=== PATIENT | male | born 1965 | race Caucasian/White ===

== ENCOUNTER 2021-01-24 08:58 | Emergency (ER) | payer BC ==
[2021-01-24] MEDS ORDERED: Sodium Chloride 0.9% 10 ML Syringe FLUSH PRN ×2 (09:07→09:14)
[2021-01-24] MEDS: Nitroglycerin 0.4 MG Tab.SL SL STA (09:09)
[2021-01-24] MEDS: Famotidine 20 MG/2 ML SDV IVPUSH ONE (09:12)
[2021-01-24] MEDS: Ticagrelor 90 MG Tab PO ONE (09:12)
[2021-01-24] MEDS: Ondansetron 4 MG/2 ML SDV IVPUSH ONE (09:12)
[2021-01-24] MEDS: Sodium Chloride 0.9% 10 ML Syringe FLUSH PRN (09:13)
[2021-01-24] MEDS: Metoprolol Tartrate 50 MG Tab PO ONE (09:19)
[2021-01-24] MEDS: Morphine 2 MG/ML SYRINGE IVPUSH ONE (09:20)
--- NOTE | 2021-01-24 09:28 | EDM.PDOC ---
ED HPI GENERAL MEDICAL PROBLEM - General Chief Complaint: Chest Pain Stated Complaint: CP Time Seen by Provider: 01/24/21 08:58 Source of Information: Reports: Patient, EMS, EMS Notes Reviewed (Ent Nurse records not available at dictation with EMT records reviewed.). Denies: Old Records (No [facility] records available) History Limitations: Reports: No Limitations - History of Present Illness INITIAL COMMENTS - FREE TEXT/NARRATIVE: Patient was brought to the emergency room via ambulance with both EMT and buffer nickel accompaniment. Note that IV access could not be obtained by the paramedics with 5 mg of IM morphine given. The patient also received 4 baby aspirins chew and swallow prior to arrival to our facility. The patient has been having 67/10 epigastric and retrosternal chest pressure with radiation to the jaws bilaterally and arms bilaterally to the elbow region since early evening on 01/23/2020. His symptoms did initially occur on an intermittent basis with some dizziness and diaphoresis with additional decreased exercise tolerance history over the last month. His blood pressures have also been somewhat elevated during the last month with his regular provider stating that he may have had distant silent CO. The patient denies any heart flutter, orthostasis, orthopnea, or any other anginal-type symptoms. No recent history of other abdominal pain, nausea, emesis, diarrhea, melena, gross hematochezia, or any food intolerance, including fatty foods, etc.. He denies any gross hematuria, colic, or other UTI symptoms. The patient also denies any recent fever, cough, wheezing, dyspnea, etc.. No history of recent headaches, visual changes, diplopia, change in mental status, or other change in neurological status. No relief of chest pain type symptoms at time of arrival to our facility with symptoms worsening since about 3 AM this morning. Onset: Gradual, Unknown/Unsure Onset Date: 01/22/21 Duration: Constant, Intermittent Location: Reports: Neck, Chest, Abdomen, Upper Extremity, Left, Upper Extremity, Right, Radiates to (As above). Denies: Head, Face, Back, Pelvis Quality: Reports: Pressure Severity: Moderate Improves with: Reports: None Worsens with: Reports: None Context: Reports: Other (As above). Denies: Sick Contact, Trauma Associated Symptoms: Reports: Chest Pain, Cough (Chronic smoker's cough), Diaphoresis. Denies: Confusion, cough w sputum, Fever/Chills, Headaches, Loss of Appetite, Malaise, Nausea/Vomiting, Rash, Seizure, Shortness of Breath, Syncope, Weakness Treatments PEARL DIVER: Reports: Aspirin, Other Medication(s), See EMS Report, Other (see below) (As above) Middle Chest Pain Score (Numeric/FACES): 7 - Related Data Allergies Allergy/AdvReac Type Severity Reaction Status Date / Time cefdinir Allergy Cannot Verified 01/24/21 09:30 Remember codeine Allergy Anaphylactic Verified 01/24/21 09:05 Shock Home Meds: Home Meds Levothyroxine 75 mcg PO ACBREAKFAST 01/24/21 [History] Lisinopril/Hydrochlorothiazide [Lisinopril-Hctz 20-25 mg Tab] 1 each PO DAILY 01/24/21 [History] atorvaSTATin [Lipitor] 20 mg PO DAILY 01/24/21 [History] Past Medical History HEENT History: Reports: Impaired Vision, Otitis Media. Denies: Allergic Rhinitis, Cataract, Glaucoma, Hard of Hearing, Macular Degeneration, Retinal Detachment Cardiovascular History: Reports: CAD, High Cholesterol, Hypertension, CO, Other (See Below). Denies: Afib, Aneurysm, Arrhythmia, Blood Clots/VTE/DVT, Cardiomyopathy, Heart Failure, Heart Murmur, PVD, Syncope Other Cardiovascular History: Possible previous silent CO. Respiratory History: Reports: COPD, Other (See Below). Denies: Asthma, Bronchitis, Recurrent, Intubation, Difficult, Intubation, Previous, PE, Pneumonia, Recurrent, Pneumothorax, Sleep Apnea, TB Other Respiratory History: Borderline COPD with no testing or medical therapy currently. Gastrointestinal History: Reports: GERD. Denies: Celiac Disease, Cholelithiasis, Chronic Constipation, Chronic Diarrhea, Colon Polyp, Diverticulosis, Fatty Liver, Fecal Incontinence, Gastritis, GI Bleed, Hepatitis, Inflammatory Bowel Disease, Irritable Bowel Syndrome, Jaundice, Pancreatitis Genitourinary History: Denies: Acute Renal Failure, BPH, Chronic Renal Insuffiency, Renal Calculus, Retention, Urinary, STD, Urinary Incontinence, UTI, Recurrent Musculoskeletal History: Reports: Arthritis, Back Pain, Chronic, Fracture, Neck Pain, Chronic, Osteoarthritis, Other (See Below). Denies: Gout, RA, SLE Other Musculoskeletal History: Right patellar dislocation at about age 10. Right knee fracture at age 10 subsequently. Fractures of digits #2 through 5 of the right hand concurrently at about age 11. Right clavicular fracture spine at about age 16. Neurological History: Denies: Alzheimers Disease, Cerebral Aneurysms, Concussion, CVA, Headaches, Chronic, Head Trauma, Migraines, MS, Neuropathy, Peripheral, Parkinson's, Seizure, TIA, Vertigo Psychiatric History: Reports: None. Denies: Abuse, Victim of, ADD, ADHD, Addiction, Anxiety, Depression, Psych Hospitalization(s), PTSD, Suicide Attempt, Suicidal Ideation Endocrine/Metabolic History: Reports: Hypothyroidism, Obesity/BMI 30+. Denies: Diabetes, Type I, Diabetes, Type II, Diabetes Mellitus, Type 3c, IDDM Hematologic History: Reports: None. Denies: Anemia, Blood Transfusion(s), Iron Deficiency Immunologic History: Reports: None. Denies: AIDS, HIV, SLE Oncologic (Cancer) History: Denies: Basal Cell Carcinoma, Colon, Hodgkin's Lymphoma, Leukemia, Lymphoma, Malignant Melanoma, Non-Hodgkin's Lymphoma, Prostate Dermatologic History: Reports: None. Denies: Eczema, Psoriasis - Infectious Disease History Infectious Disease History: Reports: Chicken Pox (As a teenager.), Measles. Denies: C-Difficile, Meningitis, Mononucleosis, MRSA, Mumps, Novel Coronavirus, Pertussis (Whooping Cough), Rheumatic Fever, Rubella, Scarlet Fever, Shingles, TB, VRE - Past Surgical History Head Surgeries/Procedures: Reports: None HEENT Surgical History: Reports: Adenoidectomy, Myringotomy w Tube(s), Oral Surgery, Tonsillectomy, Other (See Below). Denies: Cataract Surgery, Eye Surgery, Laser Surgery, LASIK, Naso-Sinus Surgery Other HEENT Surgeries/Procedures: Tonsillectomy and adenoidectomy at age 3. Bilateral PE tubes at about age 4. Multiple teeth extractions with partial upper dentures. Cardiovascular Surgical History: Reports: None. Denies: Varicose, Vascular Surgery Respiratory Surgical History: Reports: None. Denies: Thoracentesis GI Surgical History: Reports: Colonoscopy, Other (See Below). Denies: Appendectomy, Cholecystectomy, EGD, Hernia, Abdominal, Hernia, Inguinal, Hernia Repair/Other, Polypectomy Other GI Surgeries/Procedures: Colonoscopy at age 38. Male Surgical History: Reports: Circumcision, Vasectomy, Other (See Below). Denies: TURP-Transurethral Resection of Prostate Other Male Surgeries/Procedures: Vasectomy in 2005. Circumcision as an . Endocrine Surgical History: Reports: None. Denies: Thyroid Biopsy Neurological Surgical History: Reports: None (Any biopsies of your thyroid gland or skin lesions taken off that with cancer). Denies: C-Spine, Discectomy, Laminectomy, Lumbar Spine, Sacral Spine, Spinal Fusion, Thoracic Spine, Vertebroplasty (No) Musculoskeletal Surgical History: Reports: None. Denies: Amputation, Arthroscopic Procedure (Any scope procedures like of your knee your shoulder), Carpal Tunnel ( any carpal tunnel or ganglion cystlike in the wrist), Ganglion Cyst, Joint Replacement, ORIF, Shoulder Surgery Oncologic Surgical History: Reports: None Dermatological Surgical History: Reports: None Social & Family History - Family History Cardiac: Reports: Bypass, CAD, CO, Stent, Other (See Below). Denies: Blood Clots/VTE/DVT Other Cardiac Family History: Father with fatal CO in his 60s with previous CABG x4. Brother with PTCA/stent x2 in his early 50s with no history of CO. - Tobacco Use Tobacco Use Status *Q: Current Every Day Tobacco User Tobacco Use Within Last Twelve Months: Cigarettes Years of Tobacco use: 41 Packs/Tins Daily: 0.5 Packs/Tins Daily Comment: Started smoking at about age 14 with maximum use of 2 packs/day. Used Tobacco, but Quit: No Smoking Cessation Information Provided To Patient: Yes Second Hand Smoke Exposure: No Second Hand Smoke Education Provided: No - Caffeine Use Caffeine Use: Reports: Energy Drinks (1 can/day during the weekend), Soda (4 sodas per dayf). Denies: Coffee - Alcohol Use Alcohol Use History: Yes Days Per Week of Alcohol Use: 0 Number of Drinks Per Day: 0 Number of Drinks Per Day Comment: No previous DWIs, problems with alcohol abuse, etc. Total Drinks Per Week: 0 Alcohol Use in Last Twelve Months: No - Recreational Drug Use Recreational Drug Use: Yes Drug Use in Last 12 Months: No Recreational Drug Type: Reports: Marijuana/Hashish (In the early 1980s). Denies: Amphetamines (Speed), Cocaine, Dilaudid, Heroin, LSD (Acid), Morphine, Oxycodone - Living Situation & Occupation Living situation: Reports: (Third in 2011), ( second with 2 children from that marriage and first with 1 child from that marriage.), with Family () Occupation: Employed (explosives truck driver) ED ROS GENERAL - Review of Systems Review Of Systems: Comprehensive ROS is negative, except as noted in HPI. ED EXAM, GENERAL - Physical Exam Exam: See Below Exam Limited By: No Limitations General Appearance: Alert, WD/WN, No Apparent Distress Eye Exam: Bilateral Eye: EOMI, Normal Fundi, Normal Inspection (No vertigo or nystagmus. Patient is wearing glasses.), PERRL Ears: Normal External Exam, Normal Canal, Hearing Grossly Normal, Normal TMs Nose: Normal Inspection, Normal Mucosa, No Blood Throat/Mouth: Normal Inspection, Normal Lips, Normal Teeth (Partial upper dentures), Normal Gums, Normal Oropharynx, Normal Voice, No Airway Compromise. No: Dysphagia, Perioral Cyanosis Head: Atraumatic, Normocephalic. No: Facial Swelling, Facial Tenderness, Sinus Tenderness Neck: Normal Inspection, Supple, Non-Tender, Full Range of Motion. No: Carotid Bruit, Lymphadenopathy (L), Lymphadenopathy (R), Thyromegaly Respiratory/Chest: No Respiratory Distress, No Accessory Muscle Use, Chest Non- Tender, Rales (Mild bilateral basilar). No: Rhonchi, Wheezing, Pleural Rub, Retractions Cardiovascular: Normal Peripheral Pulses, Regular Rate, Rhythm, No Edema, No Gallop, No JVD, No Murmur, No Rub. No: Gallop/S3, Gallop/S4, Friction Rub Peripheral Pulses: 2+: Radial (L), Radial (R), Dorsalis Pedis (L), Dorsalis Pedis (R) GI/Abdominal: Normal Bowel Sounds, Soft, Non-Tender, No Organomegaly, No Distention, No Abnormal Bruit, No Mass, Pelvis Stable, Other (Obese). No: Guarding (Male) Exam: Deferred Rectal (Males) Exam: Deferred Back Exam: Normal Inspection, Full Range of Motion. No: CVA Tenderness (L), CVA Tenderness (R), Muscle Spasm Extremities: Normal Inspection, Normal Range of Motion, Non-Tender, No Pedal Edema, Normal Capillary Refill. No: Rock's Sign Neurological: Alert, Oriented, CN II-XII Intact, Normal Cognition, Normal Gait, Normal Reflexes (Negative Babinski's), No Motor/Sensory Deficits Psychiatric: Normal Affect, Normal Mood Skin Exam: Warm, Dry, Intact, Normal Color, No Rash. No: Diaphoretic, Wound/Incision Lymphatic: No Adenopathy #1 Interpretation EKG Date: 01/24/21 Time: 09:03 Rhythm: NSR Rate (Beats/Min): 82 [place]: Normal (Left total) P-Wave: Present QRS: Normal (0.09 seconds) ST-T: Elevated (Borderline [address] elevations in leads V1 and V2 with beginning T wave inversions in lead V1, V2, and aVL) QT: Normal CT/PQ Interval: 0.15 seconds representing a borderline short CT interval with no delta waves noted. Extreme poor R wave progression in the anterior leads Comparison: No Change (From EKGs x2 taken by the paramedics prior to arrival.) EKG Interpretation Comments: 1. Borderline anterior wall STEMI 2. Short CT interval #2 Interpretation EKG Date: 01/24/21 Time: 10:03 Rhythm: NSR Rate (Beats/Min): 84 [place]: Normal (Left) P-Wave: Present QRS: Normal (0.09 seconds) ST-T: Other (Resolution of previous borderline ST elevations in leads V1 and V2 with persistent T wave inversion in lead V1 with resolution of T wave inversions in leads aVL and V2) QT: Normal CT/PQ Interval: 0.[address] interval with no delta waves noted. Extreme poor wave progression in anterior leads Comparison: Change From Previous EKG (As above since EKG at 9:03 AM.) EKG Interpretation Comments: 1. Anterior wall ischemiaimproved 2. Short CT interval Course - Vital Signs Last Recorded V/S: Last Vital Signs Temp 36.6 C 01/24/21 09:23 Pulse 86 01/24/21 10:24 Resp 12 01/24/21 10:24 BP 128/76 01/24/21 10:24 Pulse Ox 100 01/24/21 10:24 Vital Signs - 24 hr 01/24/21 01/24/21 01/24/21 09:05 09:09 09:19 Temperature [ Temporal] Pulse, 114 H Peripheral Pulse, Peripheral [ Right Pulse Oximetry] Respiratory Rate Blood Pressure 162/108 H 162/108 H Blood Pressure [Left Upper Arm ] O2 Sat by Pulse Oximetry O2 Sat by Pulse 100 Oximetry [Room Air] 01/24/21 01/24/21 01/24/21 09:23 09:25 10:24 Temperature [ 36.6 C Temporal] Pulse, Peripheral Pulse, 96 96 86 Peripheral [ Right Pulse Oximetry] Respiratory 14 16 12 Rate Blood Pressure Blood Pressure 136/94 H 126/95 H 128/76 [Left Upper Arm ] O2 Sat by Pulse 100 100 100 Oximetry O2 Sat by Pulse Oximetry [Room Air] - Orders/Labs/Meds Orders: Active Orders 24 hr Category Date Time Status Cardiac Monitoring [RC] . DIRECTED Care 01/24/21 09:05 Active EKG Documentation Completion [RC] ASDIRECTED Care 01/24/21 09:05 Active EKG Documentation Completion [RC] ASDIRECTED Care 01/24/21 10:01 Active Oxygen Therapy, ED [RC] PRN Care 01/24/21 09:05 Active Peripheral IV Care [RC] . DIRECTED Care 01/24/21 09:05 Active Peripheral IV Care [RC] . DIRECTED Care 01/24/21 09:07 Active Peripheral IV Care [RC] . DIRECTED Care 01/24/21 09:14 Active Pulse Oximetry [RC] CONTINUOUS Care 01/24/21 09:05 Active Up With Assistance [RC] PFP Care 01/24/21 09:05 Active Vital Signs [RC] PFP Care 01/24/21 09:05 Active Nothing per Oral Now Diet [DIET] Diet 01/24/21 Breakfast Active Chest 1V Frontal [CR] Stat Exams 01/24/21 09:05 Taken Nitroglycerin [Nitrostat] Med 01/24/21 09:07 Stat 0.4 mg SL ONETIME STA Sodium Chloride 0.9% [Saline Flush] Med 01/24/21 09:05 Active 10 ml FLUSH ASDIRECTED PRN Sodium Chloride 0.9% [Saline Flush] Med 01/24/21 09:07 Active 10 ml FLUSH ASDIRECTED PRN Sodium Chloride 0.9% [Saline Flush] Med 01/24/21 09:14 Active 10 ml FLUSH ASDIRECTED PRN Obtain Past Medical Record [OM.PC] Urgent Oth 01/24/21 09:05 Active Peripheral IV Insertion Adult [OM.PC] Routine Oth 01/24/21 09:14 Ordered Peripheral IV Insertion Adult [OM.PC] Stat Oth 01/24/21 09:05 Ordered Peripheral IV Insertion Adult [OM.PC] Stat Oth 01/24/21 09:07 Ordered Resuscitation Status Stat Resus Stat 01/24/21 09:05 Ordered Medication Orders Nitroglycerin (Nitroglycerin 0.4 Mg Tab.Sl) 0.4 mg SL ONETIME STA Stop: 01/25/21 09:08 Last Admin: 01/24/21 09:09 Dose: 0.4 mg Documented by: CLAUDIO Sodium Chloride (Sodium Chloride 0.9% 10 Ml Syringe) 10 ml FLUSH ASDIRECTED PRN PRN Reason: Keep Vein Open Last Admin: 01/24/21 09:13 Dose: 10 ml Documented by: CLAUDIO Sodium Chloride (Sodium Chloride 0.9% 10 Ml Syringe) 10 ml FLUSH ASDIRECTED PRN PRN Reason: Keep Vein Open Sodium Chloride (Sodium Chloride 0.9% 10 Ml Syringe) 10 ml FLUSH ASDIRECTED PRN PRN Reason: Keep Vein Open Labs: Laboratory Tests 01/24/21 01/24/21 01/24/21 Range/Units 09:07 09:07 09:07 WBC 18.3 H (4.0-10.2) K/uL RBC 5.88 H (4.33-5.41) M/uL Hgb 18.9 H* (13.1-16.8) g/dL Hct 51.4 H (39.0-49.0) % MCV 87.4 (84.0-98.0) fL MCH 32.1 (28.2-33.3) pg MCHC 36.8 H (31.7-36.0) g/dL RDW 12.4 (11.2-14.1) % Plt Count 356 H (150-350) K/uL Neut % (Auto) 66.1 (45.0-80.0) % Lymph % (Auto) 21.6 (10.0-50.0) % Avery % (Auto) 10.6 (2.0-14.0) % Eos % (Auto) 1.1 (0.0-5.0) % Baso % (Auto) 0.6 (0.0-2.0) % Neut # (Auto) 12.09 H (1.40-7.00) K/uL Lymph # (Auto) 3.96 H (0.50-3.50) K/uL A[place] # (Auto) 1.94 H (0.00-1.00) K/uL Eos # (Auto) 0.21 (0.00-0.50) K/uL Baso # (Auto) 0.11 (0.00-0.20) K/uL PT 9.2 L (9.5-12.0) SEC INR 0.9 APTT 31.3 (24.5-32.8) SEC D-Dimer, Quantitative 175 (0-400) ng/mL Sodium (136-145) mmol/L Potassium (3.5-5.1) mmol/L Chloride (98-107) mmol/L Carbon Dioxide (21.0-32.0) mmol/L BUN (7-18) mg/dL Creatinine (0.51-1.17) mg/dL Est Cr Clr Drug Dosing Estimated GFR (MDRD) mL/min Glucose (70-99) mg/dL Lactic Acid (0.4-2.0) mmol/L Uric Acid (2.6-7.2) mg/dL Calcium (8.5-10.1) mg/dL Magnesium (1.8-2.4) mg/dL Total Bilirubin (0.2-1.0) mg/dL AST (15-37) U/L ALT (12-78) U/L Alkaline Phosphatase (46-116) IU/L Creatine Kinase (26-308) U/L Creatine Kinase Index (0.0-2.5) % CK-MB (CK-2) (0.00-3.60) ng/mL Troponin I (0.000-0.056) ng/mL NT-Pro-B Natriuret Pep (0-125) pg/mL Total Protein (6.4-8.2) g/dL Albumin (3.4-5.0) g/dL TSH, Ultra Sensitive (0.358-3.740) mIU/mL 01/24/21 01/24/21 Range/Units 09:07 09:07 WBC (4.0-10.2) K/uL RBC (4.33-5.41) M/uL Hgb (13.1-16.8) g/dL Hct (39.0-49.0) % MCV (84.0-98.0) fL MCH (28.2-33.3) pg MCHC (31.7-36.0) g/dL RDW (11.2-14.1) % Plt Count (150-350) K/uL Neut % (Auto) (45.0-80.0) % Lymph % (Auto) (10.0-50.0) % [place] % (Auto) (2.0-14.0) % Eos % (Auto) (0.0-5.0) % Baso % (Auto) (0.0-2.0) % Neut # (Auto) (1.40-7.00) K/uL Lymph # (Auto) (0.50-3.50) K/uL [place] # (Auto) (0.00-1.00) K/uL Eos # (Auto) (0.00-0.50) K/uL Baso # (Auto) (0.00-0.20) K/uL PT (9.5-12.0) SEC INR APTT (24.5-32.8) SEC D-Dimer, Quantitative (0-400) ng/mL Sodium 136 (136-145) mmol/L Potassium 4.0 (3.5-5.1) mmol/L Chloride 99 (98-107) mmol/L Carbon Dioxide 25.7 (21.0-32.0) mmol/L BUN 10 (7-18) mg/dL Creatinine 1.27 H (0.51-1.17) mg/dL Est Cr Clr Drug Dosing TNP Estimated GFR (MDRD) 58 mL/min Glucose 163 H (70-99) mg/dL Lactic Acid 2.1 H (0.4-2.0) mmol/L Uric Acid 8.3 H (2.6-7.2) mg/dL Calcium 9.6 (8.5-10.1) mg/dL Magnesium 1.8 (1.8-2.4) mg/dL Total Bilirubin 0.7 (0.2-1.0) mg/dL AST 79 H (15-37) U/L ALT 43 (12-78) U/L Alkaline Phosphatase 125 H (46-116) IU/L Creatine Kinase 694 H (26-308) U/L Creatine Kinase Index 9.2 H (0.0-2.5) % CK-MB (CK-2) 63.90 H* (0.00-3.60) ng/mL Troponin I 12.538 H* (0.000-0.056) ng/mL NT-Pro-B Natriuret Pep 1564 H (0-125) pg/mL Total Protein 8.3 H (6.4-8.2) g/dL Albumin 3.9 (3.4-5.0) g/dL TSH, Ultra Sensitive 8.476 H (0.358-3.740) mIU/mL Meds: Medications Generic Name Dose Route Start Last Admin Trade Name Freq PRN Reason Stop Dose Admin Nitroglycerin 0.4 mg 01/24/21 09:07 01/24/21 09:09 Nitroglycerin 0.4 Mg Tab.Sl SL 01/25/21 09:08 0.4 mg ONETIME STA Administration Sodium Chloride 10 ml 01/24/21 09:05 01/24/21 09:13 Sodium Chloride 0.9% 10 Ml Syringe FLUSH 10 ml ASDIRECTED PRN Administration Keep Vein Open Sodium Chloride 10 ml 01/24/21 09:07 Sodium Chloride 0.9% 10 Ml Syringe FLUSH ASDIRECTED PRN Keep Vein Open Sodium Chloride 10 ml 01/24/21 09:14 Sodium Chloride 0.9% 10 Ml Syringe FLUSH ASDIRECTED PRN Keep Vein Open Discontinued Medications Generic Name Dose Route Start Last Admin Trade Name Freq PRN Reason Stop Dose Admin Famotidine 40 mg 01/24/21 09:05 01/24/21 09:12 Famotidine 20 Mg/2 Ml Sdv IVPUSH 01/24/21 09:06 40 mg ONETIME ONE Administration Heparin Sodium (Porcine) 4,000 units 01/24/21 09:44 01/24/21 10:11 Heparin Sodium 5,000 Units/Ml Vial IVPUSH 01/24/21 09:45 Not Given ONETIME ONE Heparin Sodium (Porcine) 4,000 units 01/24/21 09:46 01/24/21 09:53 Heparin Sodium 5,000 Units/Ml Vial IVPUSH 01/24/21 09:47 4,000 units ONETIME ONE Administration Protocol Heparin Sodium/Sodium Chloride Confirm 01/24/21 10:10 01/24/21 10:34 Heparin 25,000 Units In 1/2 Ns 500 Ml Administered 01/24/21 10:11 8.5 mls/hr Dose Administration 500 mls @ as directed .ROUTE .STK-MED ONE Metoprolol Tartrate 2.5 mg 01/24/21 09:15 Metoprolol Tartrate 5 Mg/5 Ml Sdv IVPUSH 01/24/21 09:16 ONETIME ONE Metoprolol Tartrate 25 mg 01/24/21 09:16 01/24/21 09:19 Metoprolol Tartrate 50 Mg Tab PO 01/24/21 09:17 25 mg ONETIME ONE Administration Morphine Sulfate 2 mg 01/24/21 09:15 01/24/21 09:20 Morphine 2 Mg/Ml Syringe IVPUSH 01/24/21 09:16 2 mg ONETIME ONE Administration Nitroglycerin Confirm 01/24/21 09:09 01/24/21 10:02 Nitroglycerin 0.4 Mg Tab.Sl Administered 01/24/21 09:10 Not Given Dose 0.4 mg .ROUTE .STK-MED ONE Ondansetron HCl 4 mg 01/24/21 09:07 01/24/21 09:12 Ondansetron 4 Mg/2 Ml Sdv IVPUSH 01/24/21 09:08 4 mg ONETIME ONE Administration Ticagrelor 180 mg 01/24/21 09:05 01/24/21 09:12 Ticagrelor 90 Mg Tab PO 01/24/21 09:06 180 mg ONETIME ONE Administration - Radiology Interpretation Free Text/Narrative:: traffic monitor specialist initially showed a normal sinus rhythm in the 70s to 90s with subsequent sinus tachycardia in the 110s to 120s with improvement to the 70s prior to transfer. Note significant ectopy or other arrhythmia. Chest x-ray, portable, shows evidence of mild pulmonary obstructive disease with no pulmonary infiltrates, infiltrates, pneumothorax, cardiomegaly, etc. Mild centralized CHF and/or pulmonary hypertension. Mildly elevated right hemidiaphragm. Departure - Departure Time of Disposition: 11:00 Disposition: DC/Tfer to Acute Hospital 02 Reason for Transfer *Q: Primary PCI Indicated Condition: Fair Clinical Impression: Polycythemia, Shortened CT interval, Peptic reflux disease, Hypothyroidism (acquired), Elevated lactic acid level Acute myocardial infarction Qualifiers: Myocardial infarction type: non-ST elevation myocardial infarction Qualified Code(s): I21.4 - Non-ST elevation (NSTEMI) myocardial infarction Leukocytosis Qualifiers: Leukocytosis type: bandemia Qualified Code(s): D72.825 - Bandemia COPD (chronic obstructive pulmonary disease) Qualifiers: COPD type: emphysema Emphysema type: panlobular Qualified Code(s): J43.1 - Panlobular emphysema Hyperlipidemia Qualifiers: Hyperlipidemia type: unspecified Qualified Code(s): E78.5 - Hyperlipidemia, unspecified Osteoarthritis Qualifiers: Osteoarthritis location: multiple joints Osteoarthritis type: primary Qualified Code(s): M89.49 - Other hypertrophic osteoarthropathy, multiple sites CHF (congestive heart failure) Qualifiers: Heart failure type: unspecified Heart failure chronicity: acute Qualified Code(s): I50.9 - Heart failure, unspecified Referrals: PCP,Unknown [Ordering Only Provider] - Forms: ED Department Discharge, [facility] Seps[facility] Event Note (ED) - Focused Exam Vital Signs: Vital Signs Temp Pulse Pulse Resp BP BP Pulse Ox 01/24/21 10:24 86 12 128/76 100 01/24/21 09:25 96 16 126/95 H 100 01/24/21 09:23 36.6 C 96 14 136/94 H 100 01/24/21 09:19 114 H 162/108 H 01/24/21 09:09 162/108 H 01/24/21 09:05 Pulse Ox 01/24/21 10:24 01/24/21 09:25 01/24/21 09:23 01/24/21 09:19 01/24/21 09:09 01/24/21 09:05 100 - Problem List & Annotations (1) Acute myocardial infarction SNOMED Code(s): 93265013 Code(s): I21.9 - ACUTE MYOCARDIAL INFARCTION, UNSPECIFIED Status: Acute Priority: High Current Visit: Yes Onset Date: ~01/24/21 Annotation/Comment:: Final telephone consultation at 9:[address] Diaz, emergency room physician at [facility], who does accept the patient for further treatment and evaluation with no other treatment recommendations given. He is requesting that a second EKG be performed prior to patient's transfer to their facility with possible additional EKG to be performed at time of arrival to their facility. Chest pain completely resolved at time of patient's transfer with improved vital signs and stable clinical exam at time of transfer. Ambulance transfer with buffer nickel accompaniment. Note previous telephone consultation with [facility] in [place] at 9:17 AM and then again at 9:50 AM with bed still not available in their facility. Previous telephone consultation at 9:[address] Green, childbirth and infant care teacher at [facility], who did review the faxed initial EKG and did not feel that my suspicion of an anterior wall STEMI was present at that time. Note that both EKGs were sent to [facility] both by fax and email prior to patient's transfer. Note improvement of his second EKG after aggressive treatment in this emergency room. Initial problems with pain control with patient requiring an additional 2 mg of morphine IV in addition to the previous 5 mg of morphine IM given by the buffer nickel prior to arrival. IV Zofran given for nausea prophylaxis. IV Pepcid given as GI prophylaxis. Patient did receive 25 mg of Lopressor orally with previously planned 2.5 mg IV of Lopressor held secondary to somewhat decreasing blood pressures. In addition, the patient did require an additional sublingual nitroglycerin tablet in this facility with previous sublingual nitroglycerin also given by the buffer nickel prior to arrival. Note patient was also started on sodium heparin by standard non-STEMI protocol including initial 4000 unit IV bolus. Oxygen was started prior to discharge secondary to beginning effects of his previous morphine therapy as above. I did update the patient's by telephone prior to transfer. Note significantly elevated cardiac enzymes with 3 IV sites placed secondary to initial suspicion of possible STEMI as above. Qualifiers: Myocardial infarction type: non-ST elevation myocardial infarction Qualified Code(s): I21.4 - Non-ST elevation (NSTEMI) myocardial infarction (2) CHF (congestive heart failure) SNOMED Code(s): 78553367 Code(s): I50.9 - HEART FAILURE, UNSPECIFIED Status: Acute Priority: High Current Visit: Yes Onset Date: 01/24/21 Annotation/Comment:: Mild CHF by clinical exam and chest x-ray with mild to moderately elevated BNP. Consider diuretic therapy, echocardiogram, etc. by accepting providers depending on his clinical course. Qualifiers: Heart failure type: unspecified Heart failure chronicity: acute Qualified Code(s): I50.9 - Heart failure, unspecified (3) Elevated lactic acid level SNOMED Code(s): 3363485 Code(s): R79.89 - OTHER SPECIFIED ABNORMAL FINDINGS OF BLOOD CHEMISTRY Status: Acute Priority: High Current Visit: Yes Onset Date: 01/24/21 Annotation/Comment:: Borderline elevated lactic acid level with no evidence of sepsis. Lactic acid level should be repeated in about 3 hours by accepting providers. No fever despite significant leukocytosis likely secondary to stress reaction as above. (4) Shortened CT interval SNOMED Code(s): 50017783 Code(s): R94.31 - ABNORMAL ELECTROCARDIOGRAM [ECG] [EKG] Status: Acute Priority: Medium Current Visit: Yes Onset Date: 01/24/21 Annotation/Comment:: No delta waves or arrhythmia noted in the emergency room. (5) COPD (chronic obstructive pulmonary disease) SNOMED Code(s): 45113541 Code(s): J44.9 - CHRONIC OBSTRUCTIVE PULMONARY DISEASE, UNSPECIFIED Status: Chronic Priority: Medium Current Visit: Yes Annotation/Comment:: COPD by chest x-ray. Tobacco cessation advisable. Consider PFTs depending on his clinical course. No recent fever or bronchitic type symptoms despite si gnificant leukocytosis likely secondary to stress reaction. Qualifiers: COPD type: emphysema Emphysema type: panlobular Qualified Code(s): J43.1 - Panlobular emphysema (6) Hyperlipidemia SNOMED Code(s): 90395399 Code(s): E78.5 - HYPERLIPIDEMIA, UNSPECIFIED Status: Chronic Priority: Medium Current Visit: Yes Annotation/Comment:: Patient has not taken his Lipitor for about 1 week. Qualifiers: Hyperlipidemia type: unspecified Qualified Code(s): E78.5 - Hyperlipidemia, unspecified (7) Leukocytosis SNOMED Code(s): 871435462, 527468289 Code(s): D72.829 - ELEVATED WHITE BLOOD CELL COUNT, UNSPECIFIED Status: Acute Priority: High Current Visit: Yes Onset Date: 01/24/21 Annotation/Comment:: As above Qualifiers: Leukocytosis type: bandemia Qualified Code(s): D72.825 - Bandemia (8) Osteoarthritis SNOMED Code(s): 924228165 Code(s): M19.90 - UNSPECIFIED OSTEOARTHRITIS, UNSPECIFIED SITE Status: Chronic Priority: Medium Current Visit: Yes Annotation/Comment:: Stable by history with chronic low back pain. Qualifiers: Osteoarthritis location: multiple joints Osteoarthritis type: primary Qualified Code(s): M89.49 - Other hypertrophic osteoarthropathy, multiple sites (9) Peptic reflux disease SNOMED Code(s): 235940272 Code(s): K21.9 - GASTRO-ESOPHAGEAL REFLUX DISEASE WITHOUT ESOPHAGITIS Status: Chronic Priority: Medium Current Visit: Yes Annotation/Comment:: High-dose given as GI prophylaxis as above. No evidence of acute GI bleed (10) Polycythemia SNOMED Code(s): 717282676 Code(s): D75.1 - SECONDARY POLYCYTHEMIA Status: Acute Priority: Medium Current Visit: Yes Onset Date: 01/24/21 Annotation/Comment:: Possibly secondary to his tobacco abuse and/or COPD. Observe for now. (11) Hypothyroidism (acquired) SNOMED Code(s): 527528593 Code(s): E03.9 - HYPOTHYROIDISM, UNSPECIFIED Status: Chronic Priority: Medium Current Visit: Yes Annotation/Comment:: Patient has not taken his Synthroid for about 1 week - Problem List Review Problem List Initiated/Reviewed/Updated: Yes - My Orders Last 24 Hours: My Active Orders 01/24/21 Breakfast Nothing per Oral Now Diet [DIET] 01/24/21 09:05 Cardiac Monitoring [RC] . DIRECTED EKG Documentation Completion [RC] ASDIRECTED Oxygen Therapy, ED [RC] PRN Peripheral IV Care [RC] . DIRECTED Pulse Oximetry [RC] CONTINUOUS Up With Assistance [RC] PFP Vital Signs [RC] PFP Chest 1V Frontal [CR] Stat Sodium Chloride 0.9% [Saline Flush] 10 ml FLUSH ASDIRECTED PRN Obtain Past Medical Record [OM.PC] Urgent Peripheral IV Insertion Adult [OM.PC] Stat Resuscitation Status Stat 01/24/21 09:07 Peripheral IV Care [RC] . DIRECTED Nitroglycerin [Nitrostat] 0.4 mg SL ONETIME STA Sodium Chloride 0.9% [Saline Flush] 10 ml FLUSH ASDIRECTED PRN Peripheral IV Insertion Adult [OM.PC] Stat 01/24/21 09:14 Peripheral IV Care [RC] . DIRECTED Sodium Chloride 0.9% [Saline Flush] 10 ml FLUSH ASDIRECTED PRN Peripheral IV Insertion Adult [OM.PC] Routine 01/24/21 10:01 EKG Documentation Completion [RC] ASDIRECTED - Assessment/Plan Last 24 Hours: My Active Orders 01/24/21 Breakfast Nothing per Oral Now Diet [DIET] 01/24/21 09:05 Cardiac Monitoring [RC] . DIRECTED EKG Documentation Completion [RC] ASDIRECTED Oxygen Therapy, ED [RC] PRN Peripheral IV Care [RC] . DIRECTED Pulse Oximetry [RC] CONTINUOUS Up With Assistance [RC] PFP Vital Signs [RC] PFP Chest 1V Frontal [CR] Stat Sodium Chloride 0.9% [Saline Flush] 10 ml FLUSH ASDIRECTED PRN Obtain Past Medical Record [OM.PC] Urgent Peripheral IV Insertion Adult [OM.PC] Stat Resuscitation Status Stat 01/24/21 09:07 Peripheral IV Care [RC] . DIRECTED Nitroglycerin [Nitrostat] 0.4 mg SL ONETIME STA Sodium Chloride 0.9% [Saline Flush] 10 ml FLUSH ASDIRECTED PRN Peripheral IV Insertion Adult [OM.PC] Stat 01/24/21 09:14 Peripheral IV Care [RC] . DIRECTED Sodium Chloride 0.9% [Saline Flush] 10 ml FLUSH ASDIRECTED PRN Peripheral IV Insertion Adult [OM.PC] Routine 01/24/21 10:01 EKG Documentation Completion [RC] ASDIRECTED Assessment:: As above. Plan: As above. Extensive precautions were given to the patient and his by telephone, who are in agreement with the treatment plan. Ambulance transfer to [place] with buffer nickel accompaniment as above.
[2021-01-24 09:32] LABS: PTT,PARTIAL THROMBOPLSTIN TIME 31.3 SEC (24.5-32.8)
[2021-01-24 09:42] LABS: CHLORIDE,CL 99 mmol/L (98-107); SODIUM,NA 136 mmol/L (136-145)
[2021-01-24] MEDS: Heparin Sodium 5,000 Units/ML Vial IVPUSH ONE ×2 (09:53→10:11)
[2021-01-24] MEDS: Nitroglycerin 0.4 MG Tab.SL ONE (10:02)
[2021-01-24] MEDS: Heparin Sodium/0.45% NaCl 500 ML ONE (10:34)
[2021-01-24] MEDS: Sodium Chloride 0.9% 1,000 ML IV ONE (10:35)
[2021-01-24] MEDS ORDERED: Sodium Chloride 0.9% 1,000 ML IV ONE (11:14)
[2021-01-24] MEDS ORDERED: EPINEPHrine 1:10,000 1 MG/10 ML Syringe ONE ×3 (11:14)
[2021-01-24] MEDS ORDERED: Naloxone 2 MG/2 ML Syringe ONE (11:14)
[2021-01-24] MEDS ORDERED: Sodium Chloride 0.9% 10 ML Syringe ONE ×6 (11:14)
[2021-01-24] MEDS ORDERED: Amiodarone 150 MG/3 ML SDV ONE ×2 (11:14)
--- NOTE | 2021-01-24 13:06 | PCM.SN.2 ---
- Free Text/Narrative Note: Approximately 5 minutes after the patient left our facility the patient became sedated, unresponsive, and diaphoretic with the ambulance immediately returning to our facility. Secondary to his previous 5 mg IM morphine dose and 2 mg IV morphine dose the patient was given a total of 4 mg IV in 2 mg IV aliquots of Narcan with no improvement of her symptoms in the ambulance bay. Patient did have a pulse on arrival to our facility and was then immediately brought to our emergency room for further treatment and care. The patient did subsequently become pulseless, cyanotic, and more diaphoretic with CODE BLUE called and E- med initiated for recording purposes. CPR was immediately started with patient in a pulseless ventricular tachycardia upon arrival into the emergency room. He was prepared for intubation by means of a 7.5 ET tube using a video glide scope, however secondary to poor visibility from his obesity unsuccessful visualization on 2 separate occasions with intubation not actually completed or attempted. Excellent O2 supplementation based on clinical exam and resolution of previous cyanosis with O2 at 100% by bag and mask with an anesthesia bag. ACLS protocol was followed, including alternating defibrillation and drugs, with a total of 5 defibrillation attempts at 200 J each, 3 doses of 1 mg IV epinephrine, and 300 mg of amiodarone IV alternated with defibrillation and epinephrine with subsequent 150 mg of amiodarone also given IV. Shortly after the patient's initiation of his CPR this was changed to a Kd II unit with excellent pulses by palpation with this procedure. An NG tube and oral airway were also placed. In addition, two additional 1 mg doses of IV Narcan were given early in the code process. Patient's rhythm changed from coarse pulseless ventricular fibrillation to fine ventricular fibrillation with escape PVCs and occasional couplets with subsequent development of asystole with only a few escape PVCs/PEA. Additional recommendations and therapeutic suggestions were requested by this provider from the code team, including our pharmacist, Luz, nursing sta ff, and E-med with all parties agreeing to discontinue the code. The patient was pronounced at 11:35 AM. The patient's did arrive at about 12:30 PM in the emergency room and was updated concerning his previous care both during the code process and also previous emergency room visit earlier this morning. Emotional support was provided by az, ER nurse, Sandy, and our nurse coordinator, Dulce. Likely cause of was acute MN with subsequent developing pulseless ventricular tachycardia and asystole with PEA.
[2021-01-24] MEDS: Metoprolol Tartrate 5 MG/5 ML SDV IVPUSH ONE (14:05)
[2021-01-24] MEDS ORDERED: Potassium Chloride Riders 10 MEQ in Premix Bag 1 BAG IV ONE (22:31)
[2021-01-24] MEDS ORDERED: Potassium Chloride 20 MEQ Tab.ER PO ONE (22:32)
[2021-01-24] MEDS ORDERED: Sodium Chloride 0.9% 1,000 ML IV SCH (22:45)
== END 2021-01-24 21:02 | disposition expired ==
LOC: LL.ED 08:58
DX: I21.4 Non-ST elevation (NSTEMI) myocardial infarction (principal); J43.1 Panlobular emphysema; I11.0 Hypertensive heart disease with heart failure; I50.9 Heart failure, unspecified; E78.5 Hyperlipidemia, unspecified; D72.825 Bandemia; E03.9 Hypothyroidism, unspecified; M89.49 Other hypertrophic osteoarthropathy, multiple sites; R74.02 Elevation of levels of lactic acid dehydrogenase [LDH]; K21.9 Gastro-esophageal reflux disease without esophagitis; D75.1 Secondary polycythemia; Z72.0 Tobacco use; Z88.5 Allergy status to narcotic agent; Z88.1 Allergy status to other antibiotic agents
CPT/HCPCS: 36415; 43752; 71045; 80053; 82550; 82553; 83605; 83735; 83880; 84443; 84484; 84550; 85025; 85379; 85610; 85730; 92950; 93005; 93010; 96374; 96375; 99285; 99285-25; A9270-GY; J0171; J0282; J1644; J2270; J2310; J2405; J3490; J7030